=== PATIENT | female | born 1960 ===

== ENCOUNTER 2020-08-06 08:37 | Emergency (ER) | payer MEDICAID ==
[~2020-08-06] VITALS: Ht 152.4 cm; Wt 67.5 kg
--- NOTE | 2020-08-06 08:49 | NUR ---
PATIENT WALKED BACK FROM TRIAGE WITH CHIEF C/O RIGHT POINTER FINGER AND RIGHT BIG TOE PAIN. PATIENT LOUD AND STATING, "I WAS STUPID AND DRANK ALCOHOL, AND THEY WERE GOING TO CUT MY TOENAIL OFF." PATIENT REPORTS SHE DRANK 4 BEERS AROUND 4:30 THIS MORNING. PATIENT STATES SHE FRACTURED HER RIGHT POINTER FINGER 2 MONTHS AGO AND FINGER IS STILL PAINFUL AND SWOLLEN. PATIENT ALSO HAS INGROWN TOENAIL ON HER RIGHT BIG TOE. SHE STAETES "MY TOLD ME TO START DRINKING ALCOHOL AND HE WOULD CUT OFF MY INGROWN TOENAIL." MONIE ESCOBAR AT BEDSIDE FOR EVALUATION, CALL LIGHT WITHIN REACH.
[2020-08-06] MEDS ORDERED: LIDOCAINE-MPF 1%, 5ML INFIL ONE (09:00)
[2020-08-06] MEDS ORDERED: LIDOCAINE-MPF 1%, 5ML ONE (09:02)
--- NOTE | 2020-08-06 09:04 | NUR ---
X-RAY AT BEDSIDE.
--- NOTE | 2020-08-06 09:45 | NUR ---
ERPA AT BEDSIDE FOR TOENAIL REMOVAL.
[2020-08-06] MEDS ORDERED: NEOSPORIN OINT. PKT 1 PACKET ONE (09:58)
[2020-08-06] MEDS ORDERED: DIPH,PERTUSS(ACELL),TET VAC/PF 0.5 ML IM-VACC ONE ×2 (10:00→10:09)
[2020-08-06 10:13] VITALS: BP 104/44
--- NOTE | 2020-08-06 10:35 | NUR ---
Patient given discharge instructions and prescription and they have confirmed that they understand the instructions. Patient ambulatory with steady gait with significant other from ED to private vehicle.
== END 2020-08-06 10:36 | disposition home or self-care (01) ==
LOC: ED 09:28
DX: M20.011 Mallet finger of right finger(s) (principal); L60.0 Ingrowing nail
CPT/HCPCS: 11730; 90471; 90715; 99284